=== PATIENT | female | born 1995 | race American Indian/Alaskan Native ===

== ENCOUNTER 2018-01-07 18:59 | Emergency (ER) | payer SELFPAY ==
[2018-01-07 20:41] VITALS: BP 124/77
[2018-01-07 21:24] LABS: Alanine Aminotransferase 23 units/L (7-56); Albumin 3.8 g/dL (3.9-5); BUN/Creatinine Ratio 10; Blood Urea Nitrogen 5 mg/dL (7-17); Calcium 9.6 mg/dL (8.4-10.2); Hemolysis Index 9
[2018-01-07 21:34] LABS: Basophils % (Auto) 0.3 % (0.0-1.8); Eosinophils % (Auto) 0.1 % (0.0-4.3); Hematocrit 39.7 % (30.3-42.9); Hemoglobin 12.9 gm/dl (10.1-14.3); Lymphocytes # (Auto) 1.9 K/mm3 (1.2-5.4); Lymphocytes % (Auto) 14.8 % (13.4-35.0); Mean Corpuscular HGB Conc 33 % (30-34); Mean Corpuscular Hemoglobin 28 pg (28-32); Mean Corpuscular Volume 86 fl (79-97); Monocytes # (Auto) 0.7 K/mm3 (0.0-0.8); Monocytes % (Auto) 5.6 % (0.0-7.3); Platelet Count 217 K/mm3 (140-440); Red Cell Distribution Width 14.1 % (13.2-15.2)
[2018-01-07 21:46] LABS: Bacteria,Urine 1+ /HPF (Negative); Bilirubin,Urine NEG (Negative); Blood,Urine SM (Negative); Color,Urine Yellow (Yellow); Mucus,Urine 1+ /HPF; Nitrite,Urine NEG (Negative)
[2018-01-07 21:49] LABS: WBC,Urine > 182.0 /HPF (0.0-6.0)
== END 2018-01-07 21:10 | disposition left against medical advice (07) ==
LOC: ED 18:59
DX: R10.9 Unspecified abdominal pain (principal); Z53.21 Procedure and treatment not carried out due to patient leaving prior to being seen by health care provider
CPT/HCPCS: 36415; 80053; 81001; 84703; 85025

== ENCOUNTER 2018-01-08 15:35 | Emergency (ER) | payer SELFPAY ==
[2018-01-08 16:01] VITALS: BP 111/72
--- NOTE | 2018-01-08 18:03 | Emergency Department Report ---
ED Dysuria HPI - HPI Chief Complaint: Back Pain/Injury Stated Complaint: BILATERAL FLANK PAIN Time Seen by Provider: 01/08/18 17:33 Duration: possibly 2 weeks Location of Discomfort: Urethra (dysuria) Severity: Mild Symptoms: Dysuria: Yes, Frequency: Yes, Suprapubic Pain: Yes, Flank Pain: No, Fever: Yes, Hematuria: No, Abdominal Pain: No, Previous UTI's: No Other History: Patient is a 22-year-old female presenting with dysuria. Patient was here yesterday but eloped without getting the results of her urinalysis ED Review of Systems ROS: Stated complaint: BILATERAL FLANK PAIN Other details as noted in HPI Comment: All other systems reviewed and negative ED Past Medical Hx - Past Medical History Previous Medical History?: Yes Additional medical history: bronchitis - Surgical History Past Surgical History?: No - Social History Smoking Status: Former Smoker Substance Use Type: Alcohol, Non Opiate Pain - Medications Home Medications: Home Medications Medication Instructions Recorded Confirmed Last Taken Type Ciprofloxacin HCl [Cipro] 500 mg PO BID #14 tablet 01/08/18 Unknown Rx Phenazopyridine [Pyridium] 100 mg PO TID #6 tab 01/08/18 Unknown Rx traMADol [Ultram] 50 mg PO Q6HR PRN #12 tablet 01/08/18 Unknown Rx Dysuria Exam - Exam General: Vital signs noted. No distress. Alert and acting appropriately. Exam: Yes Moist Mucous Membranes, Yes Abdominal Tenderness (mild suprapubic discomfort on palpation), No CVA Tenderness, No Rigidity or Guarding Exam: General exam patient is a well-developed not ill-appearing. Heart lungs exams are normal CLEAR to auscultation normal heart tones. Skin exam is within normal limits with no lesion Labs: Patient's urinalysis from yesterday was reviewed she does have large leuk esterase and too numerous to count WBCs ED Course Vital Signs 01/08/18 15:56 Temperature 100.4 F H Pulse Rate 102 H Respiratory 20 Rate Blood Pressure 111/72 O2 Sat by Pulse 100 Oximetry ED Medical Decision Making - Medical Decision Making Patient be started on antibiotics for UTI and be discharged home Critical care attestation.: If time is entered above; I have spent that time in minutes in the direct care of this critically ill patient, excluding procedure time. ED Disposition Clinical Impression: UTI (urinary tract infection) Qualifiers: Urinary tract infection type: acute cystitis Hematuria presence: without hematuria Qualified Code(s): N30.00 - Acute cystitis without hematuria Disposition: TO HOME OR SELFCARE Is pt being admited?: No Does the pt Need Aspirin: No Condition: Stable Instructions: Urinary Tract Infection in Women (ED) Prescriptions: Ciprofloxacin HCl [Cipro] 500 mg PO BID #14 tablet Phenazopyridine [Pyridium] 100 mg PO TID #6 tab traMADol [Ultram] 50 mg PO Q6HR PRN #12 tablet PRN Reason: Pain Referrals: PRIMARY CARE, [Primary Care Provider] - 3-5 Days
== END 2018-01-08 18:07 | disposition home or self-care (01) ==
LOC: ED 15:35
DX: N30.00 Acute cystitis without hematuria (principal); Z87.891 Personal history of nicotine dependence
CPT/HCPCS: 99282

== ENCOUNTER 2019-04-08 15:36 | Emergency (ER) | payer OTHER, MEDICAID ==
[2019-04-08 16:06] VITALS: BP 128/80
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
== END 2019-04-08 20:53 ==
LOC: ED 15:36
DX: Z53.21 Procedure and treatment not carried out due to patient leaving prior to being seen by health care provider (principal)